=== PATIENT | female | born 1990 ===

== ENCOUNTER 2021-01-06 20:03 | Emergency (ER) | payer MEDICAID ==
[~2021-01-06] VITALS: Ht 170.2 cm; Wt 63.5 kg
[2021-01-06 20:03] VITALS: BP 112/69
--- NOTE | 2021-01-06 20:30 | NUR ---
Patient awake,alert and oriented x3 [id number], patient wants to leave, states "Take this things off my I want to leave". Dr. Dangelo aware
== END 2021-01-06 20:36 | disposition left against medical advice (07) ==
LOC: EDBD 20:03 → ER 20:03
DX: R55 Syncope and collapse (principal); Z53.21 Procedure and treatment not carried out due to patient leaving prior to being seen by health care provider